=== PATIENT | female | born 1965 | race Two or more races ===

== ENCOUNTER → 2016-10-22 16:15 | Outpatient (CLI) | payer BC ==
[2016-09-28 06:09] VITALS: BMI 30.8
[~2016-10-22 16:15] MED LIST: HYDROCODONE-APA1 TAB PO; IBUPROFEN600 MG PO; MULTIPLE VITAMI1 TA1 PO; OMNICEF300 MG PO; PERCOCET 5-3251 TAB PO; VITAMIN D31000 UNI2 PO; ZOCOR10 MG PO
== END | disposition home or self-care (01) ==
LOC: D.MAMMO 09-19 09:30
DX: Z12.31 Encounter for screening mammogram for malignant neoplasm of breast (principal)

== ENCOUNTER 2017-07-22 05:05 | Day surgery (SDC) | payer BC ==
[2017-07-22] MEDS ORDERED: OMEPRAZOLE20 M1 PO (06:18)
[2017-07-22 06:22] VITALS: BP 107/66; BMI 31.9
[2017-07-22 06:37] LABS: BASOPHILS 0.3 % (0-2); HEMATOCRIT 43.4 % (36.0-48.0); HEMOGLOBIN 14.4 g/dL (12-16); IMMATURE GRANULOCYTES 0.1 % (0-5); MCH 28.9 pg (26.0-34.0); MCHC 33.2 g/dL (31.0-37.0); MEAN PLATELET VOLUME 10.9 fL (7.4-10.4); MONOCYTES 7.3 % (2-11); NEUTROPHILS 49.3 % (40-80); PLATELET COUNT 236 10x3/uL (130-400); RBC 4.99 10x6/uL (4.00-5.40); RDW 14.7 % (11.5-14.5); WBC 7.2 10x3/uL (4.8-10.8)
--- NOTE | 2017-07-22 08:38 | NUR ---
PT AMBULATED TO BR TO VOID. STEADY GAIT.
--- NOTE | 2017-07-22 08:53 | NUR ---
D/C INSTRUCTIONS EXPLAINED TO PT. VOICED UNDERSTANDING. COPIES OF ALL GIVEN TO PT.
--- NOTE | 2017-07-22 08:58 | NUR ---
D/C'D HOME VIA W/C, ALERT, ORIENTED.
--- NOTE | 2017-07-31 14:40 | OP ---
PATIENT NAME: MARVIN MCGILL MEDICAL RECORD: [id number] :[id number] [facility] DATE: SURGEON: MIKY VILLALOBOS DO DATE OF OPERATION: 07/22/2017 PROCEDURES: EGD with balloon dilation and biopsies. SCOPE: Olympus video gastroscope. MEDICATIONS: Propofol 230 mg IV per anesthesia. ESTIMATED BLOOD LOSS: Minimal. COMPLICATIONS: None. FINDINGS: Informed consent was given. The patient was made comfortable with the above medication. After reaching an adequate level of sedation by slow IV push, the patient was placed on her left side. The endoscope was then advanced under direct visualization through the mouth to the second portion of the duodenum. The upper, middle, and lower thirds of the esophagus appeared normal. At the GE junction, there was some mild [place] classification A reflux induced esophagitis as well as a mild Schatzki's ring just proximal to a hiatal hernia. The endoscope easily traversed the Schatzki's ring and entered the stomach. It is retroflexed to view the cardia, where the hiatal hernia was visualized. It was approximately 3 cm medium size sliding hiatal hernia. There were no associated ulcers or abnormalities with this hernia. In the stomach, there were some patchy areas of erythema and granularity consistent with gastritis located near the cardia as well as the stomach body and antrum regions. Random biopsies were taken to submit for histology and to rule out H. pylori. The endoscope was advanced beyond the pylorus into the duodenum where the bulb and second portion of the duodenum appeared normal. The endoscope was then withdrawn back into the stomach and a 16-18 mm dilating balloon was placed through the working channel of the endoscope. The scope was withdrawn back into the esophagus and the Schatzki's ring was dilated up to 18 mm maximum diameter successfully. The scope was then withdrawn from the patient. The patient tolerated the procedure well and there were no complications. IMPRESSION: 1. [place] class A reflux-induced esophagitis. 2. Mild Schatzki's ring at the gastroesophageal junction, dilated up to 18 mm. 3. Small to medium size sliding hernia measuring approximately 3 cm. 4. Erythema and granularity of the stomach consistent with gastritis, biopsies taken. PLAN AND RECOMMENDATIONS: 1. Discharge home when recovery parameters are met. 2. GERD diet and reflux precautions. 3. Continue current medications including omeprazole 20 mg daily. 4. Notify GI clinic if symptoms worsened or failed to improve. 5. Follow up in GI clinic as needed. TRANSINT:[id number] Voice Confirmation ID: [id number] DOCUMENT ID: [id number] OPERATIVE REPORT [id number] MARVIN MCGILL NATHAN A DO at 1440 CC: [id number] DICTATION DATE: 07/22/17 0759 [employer] TECHNICAL OFFICER: 07/22/17 1100 [facility] 07/22/[address] [id number]
== END 2017-07-22 09:00 | disposition home or self-care (01) ==
LOC: D.OPS 05:05
PROVIDERS: Anesthesiology
DX: R13.10 Dysphagia, unspecified (principal); R12 Heartburn; K21.0 Gastro-esophageal reflux disease with esophagitis; K44.9 Diaphragmatic hernia without obstruction or gangrene; K22.2 Esophageal obstruction; Z01.812 Encounter for preprocedural laboratory examination

== ENCOUNTER → 2017-11-15 15:30 | Outpatient (CLI) | payer BC ==
[~2017-11-15 15:30] MED LIST changes: +OMEPRAZOLE20 M1 PO
== END | disposition home or self-care (01) ==
LOC: D.MAMMO 10-25 10:15
DX: Z12.31 Encounter for screening mammogram for malignant neoplasm of breast (principal)

== ENCOUNTER → 2018-04-03 11:02 | Outpatient (CLI) | payer BC | END | disposition home or self-care (01) | LOC: D.MRI 11:02 | DX: M54.5 Low back pain (principal) ==